=== PATIENT | male | born 1960 | race Caucasian/White ===

== ENCOUNTER → 2022-12-28 | Outpatient (CLI) | payer BC ==
--- NOTE | 2022-12-28 13:54 | CT ---
EXAMINATION TYPE: CT angio chest DATE OF EXAM: 12/28/2022 COMPARISON: NONE HISTORY: Aneurysm of ascending aorta CT DLP: 738.0 mGycm. Automated Exposure Control for Dose Reduction was Utilized. CONTRAST: CTA scan of the thorax is performed without and with IV Contrast, patient injected with 100 mL of Iso vidhya 370, aneurysm protocol. 3D reconstructed images are created on an independent workstation and re viewed. FINDINGS: LUNGS: Mild bibasilar linear scarring and/or atelectasis. There is no pleural effusion or pneumothora x seen bilaterally. No suspicious pulmonary nodules or masses. MEDIASTINUM: Noncontrast images show no suspicious hyperdense material to suggest intramural hematoma . There is ascending aortic aneurysm up to 4.3 cm axial image 81. Thoracic aorta measures 4.6 cm esther meter at the aortic root coronal image 68. No aneurysm extension into the descending aorta. No suspic ious surrounding fluid. There is bovine type aortic arch which is normal variant. No significant joão nosis is present. Mild peripheral mixed plaque. No linear hypodensity to suggest dissection in the ao rta. Moderate to severe three-vessel coronary artery calcification and/or stents are present. Correla te clinically. No cardiomegaly or pericardial effusion. No greater than 1 cm thoracic adenopathy. OTHER: There is slight S-shaped scoliosis with multilevel spurring and disc space narrowing in the th oracic spine. IMPRESSION: There is ascending aortic aneurysm up to 4.6 cm noted. No acute findings are present.
== END | disposition home or self-care (01) ==
LOC: RADCTMAIN 12:51
PROVIDERS: ATTEND Internal Medicine
DX: I71.21 Aneurysm of the ascending aorta, without rupture (principal)
CPT/HCPCS: 71275; Q9967